=== PATIENT | female | born 1960 | race American Indian/Alaskan Native ===

== ENCOUNTER 2018-06-21 10:38 | Observation (INO) | payer OTHER ==
[2018-06-21 11:28] VITALS: BMI 31.7
[2018-06-21 12:04] LABS: BASO # 0.1 K/uL (0.0-0.2); BASO % 1.3 % (0.0-2.0); EOS # 0.1 K/uL (0.0-0.7); EOS % 2.2 % (0.0-4.0); HEMOGLOBIN 13.2 g/dL (11.0-16.0); LYMPH # 2.9 K/uL (1.0-4.3); LYMPH % 52.8 % (20.0-40.0); MEAN CELL VOLUME 81.3 fL (81.0-99.0); MEAN CORPUSCULAR HEMOGLOBIN 27.1 pg (27.0-31.0); MEAN CORPUSCULAR HGB CONC 33.3 g/dL (33.0-37.0); MEAN PLATELET VOLUME 8.2 fL (7.2-11.7); MONO # 0.3 K/uL (0.0-0.8); MONO % 5.9 % (0.0-10.0); NEUT # 2.1 K/uL (1.8-7.0); NEUT % 37.8 % (50.0-75.0); NRBC % 0.1 % (0.0-2.0); RBC 4.86 Mil/uL (3.80-5.20); RED CELL DISTRIBUTION WIDTH 15.5 % (11.5-14.5); WHITE BLOOD COUNT 5.6 K/uL (4.8-10.8)
[2018-06-21 12:15] LABS: BLOOD UREA NITROGEN 12 mg/dL (7-17); CALCIUM 9.6 mg/dl (8.6-10.4); GFR NON-AFRICAN AMERICAN > 60
[2018-06-21] MEDS ORDERED: Midazolam 2 MG/2 ML VIAL ONE (13:16)
[2018-06-21] MEDS ORDERED: Propofol 10 mg/ml Inj (20 ML) ONE (13:16)
[2018-06-21] MEDS ORDERED: Succinylcholine Chloride 20 mg/ml Syr (5 ml) IV ONE (13:17)
[2018-06-21] MEDS ORDERED: ceFAZolin 1 gm FROZEN Premix 2 GM/100 ML ML IVPB ONE (13:43)
[2018-06-21] MEDS ORDERED: Lidocaine Hydrochloride 5 ML INJ ONE (13:52)
[2018-06-21] MEDS ORDERED: Bupivacaine 0.25% 20 ML INJ IJ ONE (14:17)
[2018-06-21] MEDS ORDERED: Bacitracin 500 Units/gm Oint Foilpak UD ONE (15:18)
[2018-06-21] MEDS ORDERED: Neostigmine Methylsulfate 3mg/3ml Syringe IV ONE (15:20)
[2018-06-21] MEDS ORDERED: Lactated Ringer's 1,000 ML IV ONE (15:48)
[2018-06-21] MEDS ORDERED: Lactated Ringer's 1,000 ML IV SCH (16:15)
[2018-06-21] MEDS: HYDROmorphone 0.5 mg/0.5 ml ISec IVP PRN ×3 (16:37→17:15)
[2018-06-21] MEDS ORDERED: Oxycodone/Acetaminophen 5/325 mg Tab PO PRN ×2 (18:14→19:19)
--- NOTE | 2018-06-21 19:53 | CP.PCM.PN ---
Subjective - Date & Time of Evaluation Date of Evaluation: 06/21/18 Time of Evaluation: 18:00 - Subjective Subjective: pt seen adn examiend with one epside of vomitin non bloody no billios and nause wiht pain over incison site. no fever, hcills, nasue,v omting, cp, sob Objective - Vital Signs/Intake and Output Vital Signs (last 24 hours): Temp Pulse Resp BP Pulse Ox 97.6 F 63 16 114/69 96 06/21/18 17:45 06/21/18 17:45 06/21/18 17:45 06/21/18 17:45 06/21/18 17:45 Intake and Output: 06/21/18 06/22/18 18:59 06:59 Intake Total 1100 Balance 1100 - Medications Medications: Current Medications Lactated Ringer's (Lactated Ringer's) 1,000 mls @ 100 mls/hr IV .Q10H YASIR Ondansetron HCl (Zofran Inj) 4 mg IVP DAILY@ONCE PRN PRN Reason: Nausea/Vomiting Oxycodone/Acetaminophen (Percocet 5/325 Mg Tab) 1 tab PO Q4H PRN PRN Reason: pain Stop: 06/24/18 18:15 Oxycodone/Acetaminophen (Percocet 5/325 Mg Tab) 2 tab PO Q4H PRN PRN Reason: Pain, severe (8-10) Stop: 06/24/18 19:20 - Labs Labs: 06/21/18 11:54 06/21/18 11:54 - Constitutional Appears: Non-toxic, In Acute Distress - Head Exam Head Exam: ATRAUMATIC, NORMAL INSPECTION - Eye Exam Eye Exam: EOMI - ENT Exam ENT Exam: Mucous Membranes Dry, Mucous Membranes Moist - Neck Exam Neck Exam: Full ROM - Respiratory Exam Respiratory Exam: NORMAL BREATHING PATTERN - Cardiovascular Exam Cardiovascular Exam: +S1, +S2 - GI/Abdominal Exam GI & Abdominal Exam: Soft, Tenderness, Normal Bowel Sounds Additional comments: appro;atey ttp over incisn c/d/i no guaridng no rebound tendnere, no rigidty +BS no vaigal bleeding - Exam External exam: NORMAL EXTERNAL EXAM - Extremities Exam Extremities Exam: Full ROM, Normal Capillary Refill, Normal Inspection. absent: Calf Tenderness, Joint Swelling, Pedal Edema, Tenderness Additional comments: negatieve verenice's sign - Back Exam Back Exam: NORMAL INSPECTION. absent: CVA tenderness (L), CVA tenderness (R), Full ROM, muscle spasm, paraspinal tenderness, rash noted, tenderness, vertebral tenderness - Neurological Exam Neurological Exam: Alert, Awake - Psychiatric Exam Psychiatric exam: Normal Affect, Normal Mood - Skin Skin Exam: Dry, Intact, Normal Color, Warm Assessment and Plan (1) Postoperative nausea and vomiting Assessment & Plan: 1. Observation 2. NPO, IVF 3. CBC, CMP, UA 4. Tineo managment 5. DVT prophyalixs 6, Inenstive spriomter Status: Acute
[2018-06-21] MEDS: Lactated Ringer's 1,000 ML IV SCH (20:00)
[2018-06-22 00:04] VITALS: PULSE 60
--- NOTE | 2018-06-22 03:53 | OP ---
PROCEDURE DATE: 06/21/2018 SURGEON: Elisabet Medley MD WEAVING MACHINE OPERATOR: Aditya Carrillo MD PREOPERATIVE DIAGNOSES: Postmenopausal bleeding, pelvic pain, ovarian cyst. POSTOPERATIVE DIAGNOSES: Postmenopausal bleeding, pelvic pain, ovarian cyst. OPERATION PERFORMED: Operative laparoscopy, left salpingo oophorectomy, right salpingectomy, pelvic washings, hysteroscopic myomectomy, dilation and curettage, excision of left vulvar abscess. OPERATIVE FINDINGS: A 10 to 12 weeks size anteverted uterus, normal fallopian tubes bilaterally, enlarged left ovary with multiple septated cyst, normal atrophic appearing right ovary, hysteroscopy, bilateral ostia visualized with mass within the cavity noted resected, bilateral ostia visualized and left vulvar abscess [address] Aditya Carrillo, surgical instruments inspector, was present for the entire case, essentially in gaining laparoscopic entry, holding the camera, removing the specimens, obtaining hemostatics, closing all layers. He was present for the entire case. ESTIMATED BLOOD LOSS: 20 mL. COMPLICATIONS: None. ANESTHESIA: General. DESCRIPTION OF PROCEDURE: The patient was taken to the operating room where she was given general anesthesia. Once it was found to be adequate, she was placed on the operating table in dorsal supine position with legs supported using stirrups. The patient was prepped and draped in the usual sterile fashion. Time-out was performed confirming correct patient and correct procedure. Following this, the patient was given 0.25 Marcaine and a 5-mm infraumbilical incision. The skin was then tented up with 2 towel clips, and skin incision made with a 11-blade scalpel following which a Verse needle was inserted. Confirmation was placed with normal saline. The abdomen was then insufflated with normal opening pressure and insufflated to a pressure of 50 mmHg. Following this, the Veress needle was then removed, and a 5 mm laparoscope was then inserted in direct visualization. There is a confirmation of placement,with the finding as mentioned above, and the right lower quadrant 8 mm skin incision was made after the application of 0.25 Marcaine, and an 8 mm trocar was inserted under direct visualization with good hemostatic noted in the right lower quadrant, and in left lower quadrant, a 5 mm skin incision was made after Marcaine with the trocar inserted under direct visualization. Also prior to this, a Hung catheter was inserted into the urethra to drain the bladder. A Rivera retractor was placed in the anterior and posterior fornix of the vagina. Cervix was adequately visualized. A single-tooth tenaculum was placed in the anterior lip of the cervix, and endocervical curettings were obtained with a Joãoian curette and sent to pathology on [facility]. The uterus was then sounded to 7 cm, and following this, cervix was sequentially dilated to allow for introduction of hysteroscope under direct visualization using normal saline as the distention media. The mass was resected using MyoSure device. The MyoSure device was then removed. Gentle curettage was done. The hysteroscope was then reentered. There was good hemostasis noted. HUMI uterine manipulator was then inserted and insufflated with 7 mL of air. The surgeon then regloved. Attention was then turned towards the abdomen where the laparoscope was then inserted following with the ports. Following this, the patient was placed in Trendelenburg position, and the bowel was then removed out of the operative field. Fallopian tube was then grasped on the right side carefully and the LigaSure device was then used to cauterize and cut the right fallopian tube and the mesosalpinx from the ovary, and the specimen was then removed. Following this the left IP ligament was then identified, cauterized and cut using the IP. The uterine ovarian was then cauterized and cut using LigaSure device, and the right tube and ovary was removed along the mesosalpinx. Using LigaSure device, maintained adequate hemostasis. After the insertion of the laparoscope, pelvic washings were obtained and sent for pelvic cytology. Following this, an EndoCatch bag was then entered in, and the specimen was removed to the EndoCatch bag. All the instruments were removed. There was good hemostasis at the puncture site. The fascia was reapproximated and closed with 0-Vicryl in an interrupted manner. The skin was reapproximated and closed from the 8 mm laparoscopic site. The skin was reapproximated and closed with 4-0 Monocryl running subcuticular fashion. The HUMI uterine device was then removed from the uterus. Following this, the patient was given local anesthetic along the vulvar abscess. A scalpel was then used around the edges, slight drainage was noted. Skin was then removed. The area was then copiously irrigated and cleansed with normal saline, and the skin was reapproximated with 2-0 Chromic in an interrupted manner. At the end of the procedure, all needle, sponge, and instrument counts were noted and correct x2. The patient tolerated the procedure well and was transferred to the recovery room in stable condition. Elisabet Medley MD
[2018-06-22] MEDS: Lactated Ringer's 1,000 ML IV SCH (05:06)
[2018-06-22 08:17] VITALS: BP 143/79; RESP 18; TEMP 97.4; O2SAT 97
[2018-06-22 08:35] LABS: BASO % 0.3 % (0.0-2.0); HEMOGLOBIN 12.6 g/dL (11.0-16.0); LYMPH # 1.8 K/uL (1.0-4.3); LYMPH % 18.6 % (20.0-40.0); MEAN CORPUSCULAR HEMOGLOBIN 27.3 pg (27.0-31.0); MEAN CORPUSCULAR HGB CONC 33.8 g/dL (33.0-37.0); MONO # 0.3 K/uL (0.0-0.8); MONO % 2.9 % (0.0-10.0); NEUT # 7.5 K/uL (1.8-7.0); NEUT % 78.2 % (50.0-75.0); RBC 4.61 Mil/uL (3.80-5.20); RED CELL DISTRIBUTION WIDTH 15.3 % (11.5-14.5)
[2018-06-22 08:42] LABS: WHITE BLOOD COUNT 9.5 K/uL (4.8-10.8)
[2018-06-22 08:59] LABS: ALB/GLOB RATIO 1.2 (1.0-2.1); ALBUMIN 4.3 g/dL (3.5-5.0); ALT/SGPT 31 U/L (9-52); AST/SGOT 24 U/L (14-36); BLOOD UREA NITROGEN 11 mg/dL (7-17); CALCIUM 9.4 mg/dl (8.6-10.4); GFR NON-AFRICAN AMERICAN > 60
== END 2018-06-22 13:45 | disposition home or self-care (01) ==
LOC: C.4M 10:38 → C.SDS 10:38 → C.9S 18:15 → C.4M 18:44
PROVIDERS: ADMIT Obstetrics & Gynecology; ATTEND Obstetrics & Gynecology
DX: N95.0 Postmenopausal bleeding (principal); D27.1 Benign neoplasm of left ovary; N76.2 Acute vulvitis; N84.0 Polyp of corpus uteri; D25.0 Submucous leiomyoma of uterus
CPT/HCPCS: 36415; 58558; 58661; 80048; 80053; 85025; 86850; 86900; 88104; 88302; 88304; 88305; 93005; C2615; G0378; J0690; J1100; J1170; J1885; J2250; J2405; J2704; J2710; J3010; J7120